=== PATIENT | female | born 2000 | race Two or more races ===

== ENCOUNTER 2023-02-24 12:22 | Emergency (ER) | payer SELFPAY ==
[~2023-02-24] VITALS: Ht 167.6 cm; Wt 67.1 kg
[2023-02-24] MEDS ORDERED: IBUP600T27 PO (16:08)
[2023-02-24 18:41] VITALS: BP 122/61
== END 2023-02-24 18:41 | disposition home or self-care (01) ==
LOC: ER 12:22
DX: N63.20 Unspecified lump in the left breast, unspecified quadrant (principal)
CPT/HCPCS: 76642

== ENCOUNTER 2024-05-09 11:34 | Emergency (ER) | payer MEDICAID, OTHER ==
[~2024-05-09] VITALS: Ht 165.1 cm; Wt 65.6 kg
[~2024-05-09 11:34] MED LIST: IBUP-1454 PO
[2024-05-09 14:35] LABS: Urine Bacteria FEW /hpf (None Seen); Urine Blood 3+ /uL (Negative); Urine Clarity Ex.Turbid (Clear); Urine Color Brown (Yellow); Urine Protein, UAD 3+ (Negative); Urine Urobilinogen Normal (Negative); Urine WBC 2283 /hpf (0 - 5); Urine WBC Clumps PRESENT /hpf (None Seen)
[2024-05-09] MEDS ORDERED: NITR-87 PO (14:54)
[2024-05-09 15:03] VITALS: BP 109/74; TEMP 97.9
[2024-05-09 15:12] VITALS: PULSE 78; RESP 16; O2SAT 98
== END 2024-05-09 15:28 | disposition home or self-care (01) ==
LOC: ER 11:34
DX: O20.0 Threatened abortion (principal); R10.2 Pelvic and perineal pain; O23.41 Unspecified infection of urinary tract in pregnancy, first trimester; N39.0 Urinary tract infection, site not specified; Z3A.11 11 weeks gestation of pregnancy
CPT/HCPCS: 36415; 76801; 81001; 84702